=== PATIENT | male | born 1995 | race Caucasian/White ===

== ENCOUNTER 2017-06-23 00:57 | Emergency (ER) | payer MEDICAID ==
[~2017-06-23] VITALS: Ht 172.7 cm; Wt 68.0 kg
[2017-06-23 01:04] VITALS: BP 117/73
== END 2017-06-23 02:00 | disposition left against medical advice (07) ==
LOC: ER 00:57
DX: R07.9 Chest pain, unspecified (principal); R06.00 Dyspnea, unspecified; Z53.21 Procedure and treatment not carried out due to patient leaving prior to being seen by health care provider